=== PATIENT | male | born 1985 | race Caucasian/White ===

== ENCOUNTER 2020-07-25 18:29 | Emergency (ER) | payer SELFPAY ==
[2020-07-25 19:59] LABS: HEMATOCRIT 30.6 % (39.0-50.0); HEMOGLOBIN 9.9 g/dl (14.0-18.0); IMMATURE GRANULOCYTES 0.5 % (0.0-5.0); MEAN CELL VOLUME 91.1 fL CALC (80.0-100.0); MEAN CORPUSCULAR HGB 29.5 pG CALC (26.0-32.0); MEAN CORPUSCULAR HGB CONC 32.4 g/dL CAL (32.0-36.0); NEUT# 11.26 thou/uL (1.82-7.42); RED BLOOD COUNT 3.36 mill/uL (4.70-6.10); RED CELL DISTRI WIDTH 19.7 % (11.5-15.5)
[2020-07-25 20:12] LABS: ALBUMIN 3.5 g/dL (3.2-5.0); ALKALINE PHOSPHATASE 264 u/l (38-126); AMYLASE 54 u/l (30-110); ANION GAP 17 (6-22 (CALC)); BILIRUBIN, TOTAL 5.4 mg/dL (0.0-1.4); BUN < 2 mg/dL (9-20); CARBON DIOXIDE 21 mmol/l (22-30); CHLORIDE 105 mmol/l (95-108); CREATININE 0.7 mg/dL (0.7-1.3); GFR > 60 ML/MIN (>=60 (CALC)); GFR FOR AFR.AMER. > 60 ML/MIN (>=60 (CALC)); LIPASE 249 u/l (23-300); POTASSIUM 3.8 mmol/l (3.5-5.1); SGOT/AST 115 u/l (17-59); SODIUM 139 mmol/l (137-146); TOTAL PROTEIN 7.3 g/dL (6.3-8.2)
[2020-07-25 20:39] VITALS: BP 124/71
[2020-07-25] MEDS ORDERED: RESTORIL15 MG PO (22:20)
[2020-07-25] MEDS ORDERED: PHENERGAN25 MG/TAB PO (22:20)
== END 2020-07-25 22:20 | disposition home or self-care (01) | DRG 392 ==
LOC: ED 18:29
PROVIDERS: Family Medicine
DX: K52.9 Noninfective gastroenteritis and colitis, unspecified (principal); K70.31 Alcoholic cirrhosis of liver with ascites; G47.00 Insomnia, unspecified; F17.200 Nicotine dependence, unspecified, uncomplicated; Z96.89 Presence of other specified functional implants; Z20.822 Contact with and (suspected) exposure to COVID-19
CPT/HCPCS: Q9967